=== PATIENT | male | born 1960 | race Caucasian/White ===

== ENCOUNTER 2021-07-01 13:00 | Outpatient (RCR) | payer BC, MEDICARE ==
[~2021-07-01 13:00] MED LIST: CLONIDINE HCL0.1 MG PO; COREG25 MG PO; CYMBALTA PO; DOXYCYCLINE HY100 MG PO; GABAPENTIN300 MG PO; HYDROCODONE; LASIX40 MG PO; MICRO-K10 MEQ PO; MOBIC15 MG PO; NAPROXEN PO; NORCO 5-325 TA1 EACH PO; TRENTAL400 MG PO; VENTOLIN HFA18 GM INH; WELLBUTRIN XL300 MG PO; XANAX1 MG PO; Z.0.BABY ASPIRIN81 M PO; Z.0.CIPRO500 MG PO; Z.0.DILTIAZEM 24HR12; [UNRECOGNIZED DRUG - OTHER] PO
== END 2021-07-02 ==
LOC: PT 13:00
PROVIDERS: ATTEND Orthopaedic Surgery
DX: M17.12 Unilateral primary osteoarthritis, left knee (principal); M25.562 Pain in left knee; M25.662 Stiffness of left knee, not elsewhere classified; M62.81 Muscle weakness (generalized); R29.3 Abnormal posture; R26.2 Difficulty in walking, not elsewhere classified
CPT/HCPCS: 97139

== ENCOUNTER 2021-07-09 13:15 | Outpatient (RCR) | payer BC, MEDICARE | END 2021-08-02 | LOC: PT 13:15 | PROVIDERS: ATTEND Orthopaedic Surgery | DX: M17.12 Unilateral primary osteoarthritis, left knee (principal); M25.562 Pain in left knee; M25.662 Stiffness of left knee, not elsewhere classified; M62.81 Muscle weakness (generalized); R29.3 Abnormal posture; R26.2 Difficulty in walking, not elsewhere classified ==

== ENCOUNTER 2021-07-30 19:22 | Emergency (ER) | payer BC, MEDICARE ==
[~2021-07-30] VITALS: Ht 172.7 cm; Wt 95.3 kg
[2021-07-30 20:53] LABS: BASOPHILS # (AUTO) 0.1 (0.0-0.1); BASOPHILS % 0.9 % (0.0-1.0); EOSINOPHILS # (AUTO) 0.1 (0.0-0.4); EOSINOPHILS % 1.2 % (0.0-6.0); HEMATOCRIT 48.7 % (38.2-49.6); HEMOGLOBIN 16.1 g/dL (14.0-18.0); LYMPHOCYTES # (AUTO) 1.3 (1.0-3.2); LYMPHOCYTES % 16.5 % (18.0-39.1); MEAN CORPUSCULAR HEMOGLOBIN 30.2 pg (28-32); MEAN CORPUSCULAR HGB CONC 33.1 g/dL (31-35); MEAN CORPUSCULAR VOLUME 91.4 fL (81-99); MONOCYTES # (AUTO) 0.7 (0.2-0.8); MONOCYTES % 8.7 % (4.4-11.3); NEUTROPHILS # (AUTO) 5.5 (2.1-6.9); NEUTROPHILS % 72.3 % (38.7-80.0); PLATELET COUNT 224 x10e3/uL (140-360); RED BLOOD COUNT 5.33 x10e6/uL (4.3-5.7); RED CELL DISTRIBUTION WIDTH 12.2 % (11.7-14.4)
[2021-07-30 21:20] LABS: ALANINE AMINOTRANSFERASE 25 IU/L (0-55); ALBUMIN 4.1 g/dL (3.5-5.0); ALBUMIN/GLOBULIN RATIO 1.3 (0.8-2.0); ALKALINE PHOSPHATASE 73 IU/L (40-150); ANION GAP 15.3 mmol/L (8-16); BLOOD UREA NITROGEN 27 mg/dL (7-26); BUN/CREATININE RATIO 23 (6-25); CALCIUM 10.1 mg/dL (8.4-10.2); CARBON DIOXIDE 25 mmol/L (22-29); CHLORIDE 106 mmol/L (98-107); CREATINE KINASE 50 IU/L (30-200); CREATININE, SERUM 1.15 mg/dL (0.72-1.25); EST GLOMERULAR FILTRATION RATE 65 ML/MIN (60-); GLUCOSE 82 mg/dL (74-118); POTASSIUM 3.3 mmol/L (3.5-5.1); SODIUM 143 mmol/L (136-145)
== END 2021-07-30 22:02 | disposition home or self-care (01) ==
LOC: ER 19:48
DX: M94.0 Chondrocostal junction syndrome [Tietze] (principal); I10 Essential (primary) hypertension; J44.9 Chronic obstructive pulmonary disease, unspecified; J45.909 Unspecified asthma, uncomplicated; G47.30 Sleep apnea, unspecified; M79.7 Fibromyalgia
CPT/HCPCS: 36415; 71045; 80053; 82550; 82553; 84484; 85025; 85379; 93005; 99284

== ENCOUNTER 2024-08-24 16:09 | Emergency (ER) | payer BC, MEDICARE ==
[~2024-08-24] VITALS: Ht 172.7 cm; Wt 95.3 kg
[2024-08-24 17:04] VITALS: PULSE 99; RESP 16; TEMP 98.6; O2SAT 95
== END 2024-08-24 17:40 | disposition home or self-care (01) ==
LOC: FSED 16:46
DX: S16.1XXA Strain of muscle, fascia and tendon at neck level, initial encounter (principal); S29.011A Strain of muscle and tendon of front wall of thorax, initial encounter; V43.52XA Car driver injured in collision with other type car in traffic accident, initial encounter; Y92.488 Other paved roadways as the place of occurrence of the external cause; I10 Essential (primary) hypertension; J44.9 Chronic obstructive pulmonary disease, unspecified; J45.909 Unspecified asthma, uncomplicated; G47.30 Sleep apnea, unspecified; M79.7 Fibromyalgia
CPT/HCPCS: 71046; 99284